=== PATIENT | female | born 1970 | race Caucasian/White ===

== ENCOUNTER 2016-07-06 00:30 | Emergency (ER) | payer OTHER ==
[~2016-07-06] VITALS: Ht 160 cm; Wt 74.8 kg
--- NOTE | 2016-07-06 00:41 | NUR ---
Dr. Ocasio evaluating patient at triage.
[2016-07-06 00:48] VITALS: BP 145/78
[2016-07-06] MEDS ORDERED: NACL 0.9% 1,000 ML IV ONE (00:50)
[2016-07-06] MEDS ORDERED: PIPERACILLIN/TAZOBACTAM 3.375 GM in DEXTROSE 5% 50 ML IV ONE (00:50)
--- NOTE | 2016-07-06 00:54 | NUR ---
PT TAKEN TO BED 2
--- NOTE | 2016-07-06 00:55 | NUR ---
45Y F BIB FAMILY C/O RIGHT BREAST PAIN X 3 WEEKS, PT WAS PROVIDED BACTRIM BID X 10 DAYS AND MOTRIN 600MG Q6 #20 BY JOHNIE ELIAS . PATIENT STATES PAIN OF 10/10 AT THIS TIME; VSS; PATIENT POSITIONED FOR COMFORT; HOB ELEVATED; BEDRAILS UP X2; BED DOWN. ER MD MADE AWARE OF PT STATUS.
[2016-07-06] MEDS ORDERED: PIPERACILLIN/TAZOBACTAM 3.375 GM VIAL IV ONE (01:07)
--- NOTE | 2016-07-06 01:22 | NUR ---
X-Ray at bedside.
--- NOTE | 2016-07-06 02:00 | NUR ---
IV removed, catheter intact and site benign. Applied folded 4x4 gauze and tape to stop bleeding. DR. GUILLAUME AT BEDSIDE REEVALUATING PATIENT.
[2016-07-06 02:01] VITALS: BP 128/76
--- NOTE | 2016-07-06 02:01 | NUR ---
Patient discharged with v/s stable. Written and verbal after care instructions given and explained BY KALEY Mota. Patient alert, oriented and verbalized understanding of instructions. Ambulatory with steady gait. All questions addressed prior to discharge. ID band removed. Patient advised to follow up with PMD. Rx of TYLENOL WITH CODEINE NO. 3 TABLET 1 TO 2 TABS EVERY 6 HOURS NEEDED FOR PAIN given. Patient educated on indication of medication including possible reaction and side effects. Opportunity to ask questions provided and answered.
== END 2016-07-06 02:01 | disposition home or self-care (01) ==
LOC: MED 00:30
DX: N61.0 Mastitis without abscess (principal); R03.0 Elevated blood-pressure reading, without diagnosis of hypertension
CPT/HCPCS: 36415; 71010; 80053; 81002; 81025; 82553; 83605; 83880; 84484; 85025; 85379; 85610; 85730; 87040; 93005; 96365; 99285; J2543; J7030; J7060; Q0092